=== PATIENT | male | born 1945 | race African-American/Black ===

== ENCOUNTER 2017-11-06 05:26 | Inpatient (IN) | payer MEDICARE, MEDICAID ==
[~2017-11-06] VITALS: Ht 167.6 cm; Wt 64.2 kg
[2017-11-06] MEDS ORDERED: SODIUM CHLORIDE 0.9% 1,000 ML IV ONE (06:14)
[2017-11-06] MEDS ORDERED: LEVETIRACETAM 500MG PREMIX 100 ML IV ONE (06:15)
[2017-11-06] MEDS ORDERED: LORAZEPAM 2MG/ML CPJ IV ONE (06:15)
[2017-11-06] MEDS ORDERED: LEVE1000 PO (06:27)
[2017-11-06] MEDS ORDERED: HYDR-4001 PO (06:27)
[2017-11-06] MEDS ORDERED: DIVA250T PO (06:27)
[2017-11-06] MEDS ORDERED: AMLO10TA80 PO (06:27)
[2017-11-06] MEDS ORDERED: BISA10SU62 RC (06:27)
[2017-11-06] MEDS ORDERED: HYDR-4133 PO (06:27)
[2017-11-06] MEDS ORDERED: POLY250017 MT (06:27)
[2017-11-06] MEDS ORDERED: MOM MT (06:27)
[2017-11-06 07:26] LABS: BASOPHILS % 0.2 % (0.0-2.0); EOSINOPHILS % 0.8 % (0.0-5.0); HEMATOCRIT. 34.9 % (42.0-52.0); HEMOGLOBIN. 11.6 g/dL (14.0-18.0); LYMPHOCYTES % 27.8 % (20.0-50.0); MEAN CORPUSCULAR HEMOGLOBIN 29.9 pg (28.0-32.0); MEAN CORPUSCULAR VOLUME 89.5 fL (80.0-94.0); MEAN PLATELET VOLUME 8.1 fl (7.4-10.4); MONOCYTES % 7.9 % (2.0-8.0); NEUTROPHILS % 63.3 % (40.0-76.0); PLATELET 215 x1000/uL (130-400); RED CELL DISTRIBUTION WIDTH 15.4 % (11.6-14.6)
[2017-11-06 07:30] LABS: CHLORIDE 106 mEq/L (98-107)
[2017-11-06 07:36] LABS: ETHANOL BLOOD < 10 mg/dL
[2017-11-06 11:05] VITALS: BP 137/71
[2017-11-06 11:30] VITALS: BP 137/71
[2017-11-06] MEDS ORDERED: ONDANSETRON HCL 4MG/2ML VIAL IV PRN (13:30)
[2017-11-06] MEDS ORDERED: CLONIDINE 0.1MG TABLET PO PRN (13:30)
[2017-11-06] MEDS ORDERED: DIPHENHYDRAMINE 50MG/ML VIAL IV PRN (13:30)
[2017-11-06] MEDS ORDERED: ACETAMINOPHEN 325MG TABLET PO PRN (13:30)
[2017-11-06] MEDS ORDERED: LORAZEPAM 2MG/ML CPJ IV PRN (13:30)
[2017-11-06] MEDS ORDERED: DEXT 5%/0.45% NACL KCL 20MEQ/L 1,000 ML IV SCH (14:00)
[2017-11-06 16:00] VITALS: BP 106/74
[2017-11-06] MEDS ORDERED: MAGNESIUM HYDROXIDE 400MG/5ML 30ML UDC PO PRN (16:30)
[2017-11-06] MEDS ORDERED: BISACODYL 10MG SUPP PR PRN (16:30)
[2017-11-06] MEDS: LEVETIRACETAM 500 MG in SODIUM CHLORIDE 0.9% 100 ML IV SCH (19:14)
[2017-11-06 20:00] VITALS: BP 46/22
[2017-11-06] MEDS ORDERED: AMLODIPINE 5MG TABLET PO SCH (21:00)
[2017-11-06] MEDS ORDERED: SODIUM CHLORIDE 0.9% 500ML IV SOLN IV NR (21:00)
[2017-11-06] MEDS: VALPROIC ACID 250MG CAPSULE PO SCH (22:11)
[2017-11-07 04:00] VITALS: BP 110/68
[2017-11-07] MEDS: VALPROIC ACID 250MG CAPSULE PO SCH (06:02)
[2017-11-07] MEDS: LEVETIRACETAM 500 MG in SODIUM CHLORIDE 0.9% 100 ML IV SCH (06:02)
[2017-11-07 08:24] VITALS: BP 112/64
[2017-11-07] MEDS ORDERED: POLYETHYLENE GLYCOL 3350 (17GM) 1 DOSE PACK PO SCH (09:00)
[2017-11-07 12:00] VITALS: BP 116/70
[2017-11-07 12:15] VITALS: BP 109/72
[2017-11-07 12:54] VITALS: BP 116/70
[2017-11-07] MEDS ORDERED: LEVE1000 PO (13:08)
[2017-11-07] MEDS ORDERED: LEVETIRACETAM 500MG TABLET PO SCH (21:00)
== END 2017-11-07 13:20 | DRG 101 ==
LOC: ER 05:26 → 6WST 09:19 → ENRESERV 10:06
PROVIDERS: ADMIT Internal Medicine; ATTEND Internal Medicine
DX: G40.911 Epilepsy, unspecified, intractable, with status epilepticus (principal); F03.90 Unspecified dementia, unspecified severity, without behavioral disturbance, psychotic disturbance, mood disturbance, and anxiety; I95.9 Hypotension, unspecified; F29 Unspecified psychosis not due to a substance or known physiological condition; F17.200 Nicotine dependence, unspecified, uncomplicated; I10 Essential (primary) hypertension; F41.9 Anxiety disorder, unspecified; F32.9 Major depressive disorder, single episode, unspecified; Z79.1 Long term (current) use of non-steroidal anti-inflammatories (NSAID); Z79.899 Other long term (current) drug therapy; Z85.841 Personal history of malignant neoplasm of brain; Z86.718 Personal history of other venous thrombosis and embolism
CPT/HCPCS: 36415; 70450; 80053; 80165; 82962; 85025; 93970; 96361; 96374; 96375; 99291; G0482; J1953; J2060; J7030; J7050; A4315

== ENCOUNTER 2017-11-11 04:09 | Emergency (ER) | payer MEDICARE, MEDICAID ==
[~2017-11-11] VITALS: Ht 172.7 cm; Wt 66.0 kg
[~2017-11-11 04:09] MED LIST: AMLO10TA80 PO; BISA10SU62 RC; DIVA-73 PO; HYDR-4001 PO; HYDR-4133 PO; LEVE1000 PO; MOM MT; POLY250017 MT
[2017-11-11] MEDS ORDERED: SODIUM CHLORIDE 0.9% 1,000 ML IV ONE (04:23)
[2017-11-11] MEDS ORDERED: LORAZEPAM 2MG/ML CPJ IV ONE (04:30)
[2017-11-11] MEDS ORDERED: LEVETIRACETAM 500MG PREMIX 100 ML IV ONE (04:30)
[2017-11-11 04:58] LABS: BASOPHILS % 0.5 % (0.0-2.0); EOSINOPHILS % 2.7 % (0.0-5.0); HEMATOCRIT. 32.1 % (42.0-52.0); HEMOGLOBIN. 10.9 g/dL (14.0-18.0); LYMPHOCYTES % 50.9 % (20.0-50.0); MEAN CORPUSCULAR HEMOGLOBIN 29.9 pg (28.0-32.0); MEAN CORPUSCULAR VOLUME 87.7 fL (80.0-94.0); MEAN PLATELET VOLUME 8.1 fl (7.4-10.4); MONOCYTES % 14.3 % (2.0-8.0); NEUTROPHILS % 31.6 % (40.0-76.0); PLATELET 216 x1000/uL (130-400); RED BLOOD CELL COUNT 3.66 mill/uL (4.7-6.1); RED CELL DISTRIBUTION WIDTH 14.6 % (11.6-14.6)
[2017-11-11 05:00] LABS: CHLORIDE 102 mEq/L (98-107)
[2017-11-11 05:01] LABS: INR 1.1; PROTHROMBIN TIME 11.7 sec (9.4-11.6)
[2017-11-11 05:03] LABS: AMMONIA < 10 uMol/L (<32)
[2017-11-11 05:04] LABS: ETHANOL BLOOD < 10 mg/dL
[2017-11-11 05:09] LABS: CREATINE KINASE 139 IU/L (39-308)
[2017-11-11 05:19] LABS: CARBAMAZEPINE < 0.5 ug/mL (4-12); PHENOBARBITAL < 2.1 ug/mL (15.0-40.0); VALPROIC ACID < 3.0 ug/mL (50-100)
[2017-11-11] MEDS ORDERED: VALPROIC ACID 250MG CAPSULE PO ONE (05:45)
[2017-11-11 05:46] LABS: CLARITY URINE CLEAR (CLEAR); COLOR URINE YELLOW (YELLOW); KETONES URINE NEGATIVE (NEGATIVE); LEUKOCYTE ESTERASE URINE NEGATIVE (NEGATIVE); NITRITE URINE NEGATIVE (NEGATIVE); OCCULT BLOOD URINE 2+ (NEGATIVE); PROTEIN URINE NEGATIVE (NEGATIVE); UROBILINOGEN URINE 0.2 E.U./dL (0.2-1.0)
[2017-11-11 06:05] LABS: *AMPHETAMINES SCREEN URINE NEGATIVE (NEGATIVE); *BARBITURATES SCREEN URINE NEGATIVE (NEGATIVE); *BENZODIAZEPINES SCREEN URINE NEGATIVE (NEGATIVE); *COCAINE SCREEN URINE NEGATIVE (NEGATIVE); METHADONE URINE SCREEN NEGATIVE (NEGATIVE); OPIATES URINE SCREEN NEGATIVE (NEGATIVE)
[2017-11-11 06:07] LABS: CANNABINOID URINE SCREEN NEGATIVE (NEGATIVE); PHENCYCLIDINE URINE SCREEN NEGATIVE (NEGATIVE)
[2017-11-11] MEDS ORDERED: LORAZEPAM 2MG/ML CPJ IM ONE (06:15)
[2017-11-11] MEDS ORDERED: LORAZEPAM 2MG/ML CPJ ONE (06:19)
[2017-11-11 09:59] VITALS: BP 156/84
== END 2017-11-11 10:28 ==
LOC: ER 04:09
DX: R56.9 Unspecified convulsions (principal); D64.9 Anemia, unspecified; I10 Essential (primary) hypertension; F29 Unspecified psychosis not due to a substance or known physiological condition; Z79.899 Other long term (current) drug therapy
CPT/HCPCS: 36415; 80053; 80156; 80165; 80184; 80185; 80305; 81003; 82140; 82550; 82962; 84443; 84484; 85025; 85610; 93005; 96365; 96372; 96375; 99285; G0482; J1953; J2060; J7030

== ENCOUNTER 2018-11-27 12:00 | Emergency (ER) | payer MEDICARE, MEDICAID ==
[~2018-11-27] VITALS: Ht 172.7 cm; Wt 55.0 kg
[2018-11-27 13:00] LABS: BASOPHILS % 0.5 % (0.0-2.0); HEMOGLOBIN. 11.5 g/dL (14.0-18.0); LYMPHOCYTES % 48.6 % (20.0-50.0); MEAN CORPUSCULAR HEMOGLOBIN 33.4 pg (28.0-32.0); MEAN PLATELET VOLUME 9.4 fl (7.4-10.4); MONOCYTES % 14.7 % (2.0-8.0); NEUTROPHILS % 32.2 % (40.0-76.0); PLATELET 118 x1000/uL (130-400); RED BLOOD CELL COUNT 3.44 mill/uL (4.7-6.1); RED CELL DISTRIBUTION WIDTH 14.3 % (11.6-14.6)
[2018-11-27 13:06] LABS: CLARITY URINE CLEAR (CLEAR); COLOR URINE YELLOW (YELLOW); KETONES URINE NEGATIVE (NEGATIVE); LEUKOCYTE ESTERASE URINE NEGATIVE (NEGATIVE); NITRITE URINE NEGATIVE (NEGATIVE); OCCULT BLOOD URINE 2+ (NEGATIVE); PH URINE 7.5 (4.5-8.0); PROTEIN URINE NEGATIVE (NEGATIVE); SPECIFIC GRAVITY URINE 1.013 (1.005-1.030)
[2018-11-27 13:09] LABS: CHLORIDE 108 mEq/L (98-107)
[2018-11-27] MEDS ORDERED: DEXT 10%/0.9% NACL 1,000 ML IV ONE (15:30)
[2018-11-27] MEDS ORDERED: SODIUM CHLORIDE 23.4% 154 MEQ in DEXT 10% WATER 1,000 ML IV SCH (15:45)
[2018-11-27 18:20] VITALS: BP 122/61
== END 2018-11-27 18:22 | disposition home or self-care (01) ==
LOC: ER 12:00
DX: E16.2 Hypoglycemia, unspecified (principal)
CPT/HCPCS: 36415; 80048; 81003; 99283; J7131